=== PATIENT | female | born 1960 | race Caucasian/White ===

== ENCOUNTER → 2017-02-27 | Outpatient (CLI) | payer OTHER | LOC: BMCIMAGING 12:52 | PROVIDERS: ATTEND Internal Medicine | DX: Z12.31 Encounter for screening mammogram for malignant neoplasm of breast (principal) | CPT/HCPCS: G0202 ==

== ENCOUNTER → 2017-10-04 | Outpatient (CLI) | payer OTHER | LOC: BMCIMAGING 14:29 | PROVIDERS: ATTEND Internal Medicine | DX: M79.662 Pain in left lower leg (principal) ==

== ENCOUNTER → 2018-05-20 | Outpatient (CLI) | payer OTHER | LOC: BMCIMAGING 13:02 | PROVIDERS: ATTEND Internal Medicine | DX: Z12.31 Encounter for screening mammogram for malignant neoplasm of breast (principal) ==